=== PATIENT | female | born 1955 | race Caucasian/White ===

== ENCOUNTER → 2023-09-06 12:45 | Outpatient (REF) | payer MEDICARE, OTHER, SELFPAY | LOC: WDC 12:45 | PROVIDERS: ATTENDING PHYSICIAN Obstetrics & Gynecology Gynecology; FAMILY PHYSICIAN Physician Assistant | DX: Z12.31 Encounter for screening mammogram for malignant neoplasm of breast (principal) | CPT/HCPCS: 77063; 77067 ==

== ENCOUNTER 2024-09-04 11:19 | Emergency (ER) | payer MEDICARE, OTHER, SELFPAY ==
[2024-09-04 11:25] VITALS: BP 146/78
--- NOTE | 2024-09-04 12:44 | ED.GENMED ---
History of Present Illness
General
Chief Complaint: Fall
Source: patient
Exam Limitations: none
Time Seen by Provider: 09/04/24 12:26
History of Present Illness
History of Present Illness:
68yoF with a history of hypertension and hypothyroidism presenting for evaluation after a fall. Fall occurred yesterday morning, over 24 hours ago. Patient was walking down the steps when she lost her footing. The left knee bent backwards. She
tried to catch herself on the staircase. She hit her head against the wall but did not lose consciousness. Patient is presenting today with pain in her left knee and ankle. She is having some difficulty with weightbearing. No paresthesias. She
has a very mild headache. No neck pain, dizziness, vomiting. She does not take any blood thinners. Of note, patient reports arthritis in her knees and was previously told that she would need a knee replacement.
Past History
Past History
ED Past Medical History: HTN, Hypercholesterolemia and Other (Colitis, IBS, Prolapsed Bladder and uterus)
ED Past Surgical History: Gynecological (Ectopic with removal or right tube)
Social History
Tobacco: Non-smoker
Alcohol: Occasional
Personal:
Living: with family
Phy Exam
General Physical Exam
General Presentation: well appearing and no apparent distress
General Skin: warm and dry
General Habitus: normal
General Mental: alert
ENT Exam
ENT Exam: normocephalic and other (No external signs of head trauma. No cervical spine tenderness.)
Eye Exam
Eye Exam: PERRL
Pulmonary Exam
Pulmonary Exam: no respiratory distress
Neurological Exam
Neurological Exam: alert
P[place] Coma Scale
Eye Opening: Spontaneous
Verbal Response: Oriented
Motor Response: Obeys Commands
GCS Total Score: 15
Musculoskeletal Exam
Musculoskeletal Exam: other (No deformities. Mild swelling to L knee with tenderness anteriorly. Extension is mildly limited but able to flex to 90 degrees. There is mild swelling noted overlying the lateral malleolus. 2+ PT pulse and sensation
intact.)
Skin Exam
Skin Exam: normal color and warm/dry
Psychiatric Exam
Psychiatric Exam: normal mood/affect
Course
Orders/Labs/Results
Orders:
Orders
09/04/24 11:29
CR Ankle - Left Min 3 Views Urgent
Comment:
Reason For Exam: fall
09/04/24 11:31
CR Knee - Left 4 Or More View* Urgent
Comment:
Reason For Exam: fall
Vital Signs
Initial and Last Documented VS:
Initial Vital Signs
Temp Pulse Resp BP Pulse Ox
98 F 71 20 146/78 72
09/04/24 11:25 09/04/24 11:25 09/04/24 11:25 09/04/24 11:25 09/04/24 11:25
Last Documented Vital Signs
Temp Pulse Resp BP Pulse Ox
98 F 71 20 146/78 72
09/04/24 11:25 09/04/24 11:25 09/04/24 11:25 09/04/24 11:25 09/04/24 12:45
MDM/Problems Addressed
Differential Diagnosis Includes:
68yoF here with L ankle and knee pain after a fall >24 hours ago. Hit head but denies LOC and has no external signs of head trauma on exam. No deformities noted. LLE is neurovascularly intact. Differential diagnosis includes: fracture, sprain,
meniscus injury
X-rays obtained of both L ankle and knee which are negative for fractures. Offered knee immobilizer and crutches which she declines. Patient has a walker that she can use as needed. Supportive care discussed. Advised f/u with orthopedics if symptoms
persist.
*Pulse Oximetry
SaO2: 72
Oxygen Mode of Delivery: Room air
Patient hypoxic: not evaluated
*Critical Care Note
Total Time (30-74mins, 75-104mins- exclusive of procedures): Not Applicable
Update Note
Update Note:
Oxygen saturation documented as 72%. This is a documentation error. Patient has no complaints of shortness of breath and there are no clinical signs of respiratory distress.
ED Attending Note
-
Portions of this chart may have been created with voice recognition software.� Occasional wrong word or��sound alike� substitutions may have occurred due to the inherent limitations of voice recognition software.
Discharge Plan
Departure
Patient Disposition: Home (Routine Discharge)
Date of Disposition: 09/04/24
Time of Disposition: 12:45
Patient with high blood pressure during this ER visit?: Yes
Discharge Problem:
Fall down steps, Injury of left knee
Instructions: Knee Sprain ED
Prescriptions:
No Action
triamterene-hydrochlorothiazid 1 CAPSULE capsule
1 cap PO DAILY
melatonin 3 MG tablet
3 mg PO PRN PRN (Reason: insomnia)
amlodipine [Norvasc] 5 MG tablet
7.5 mg PO DAILY Qty: 45 0RF
metronidazole 500 MG tablet
500 mg PO Q8H Qty: 18 0RF
levofloxacin [Levaquin] 500 MG tablet
500 mg PO Q12H Qty: 12 0RF
Referrals:
Debra Hodge PA [Family Provider, Family Practice]
Activity Restrictions/Additional Instructions:
Apply ice to affected area. Take Tylenol as needed for pain. Wear a brace on your knee to help with comfort.
Please follow-up with your orthopedic surgeon if symptoms persist.
Interventions
Interventions:
*Risk Screen - Suicide Last Done: 09/04/24 11:25
*General Assessment Last Done: 09/04/24 11:25
*Neglect/Abuse Screening Last Done: 09/04/24 11:25
*Nursing Disposition Last Done: 09/04/24 12:53
ED-Musculoskeletal Assessment Last Done: 09/04/24 11:51
Discharge Date and Time
Discharge Date/Time: 09/04/24 12:57
Print Language: NAMIBIAN
== END 2024-09-04 12:57 | disposition home or self-care (01) ==
LOC: EMR 11:19
PROVIDERS: EMERGENCY PHYSICIAN Emergency Medicine; FAMILY PHYSICIAN Physician Assistant
DX: S89.92XA Unspecified injury of left lower leg, initial encounter (principal); M25.572 Pain in left ankle and joints of left foot; W10.9XXA Fall (on) (from) unspecified stairs and steps, initial encounter; I10 Essential (primary) hypertension; E78.00 Pure hypercholesterolemia, unspecified; E03.9 Hypothyroidism, unspecified
CPT/HCPCS: 99283; 73564; 73610

== ENCOUNTER → 2024-11-06 13:54 | Outpatient (REF) | payer MEDICARE, OTHER, SELFPAY | LOC: WDC 13:54 | PROVIDERS: ATTENDING PHYSICIAN Obstetrics & Gynecology Gynecology; FAMILY PHYSICIAN Physician Assistant | DX: Z78.0 Asymptomatic menopausal state (principal); Z12.31 Encounter for screening mammogram for malignant neoplasm of breast | CPT/HCPCS: 77063; 77067; 77080 ==